=== PATIENT | female | born 1980 | race Caucasian/White ===

== ENCOUNTER 2019-08-18 19:42 | Emergency (ER) | payer MEDICAID ==
[~2019-08-18] VITALS: Ht 165.1 cm; Wt 72.1 kg
[2019-08-18 19:53] VITALS: Ht 165.1 cm; Wt 72.1 kg
[2019-08-18 23:25] VITALS: BP 125/78
== END 2019-08-18 23:25 | disposition home or self-care (01) ==
LOC: ED 19:42
DX: R51 Headache (principal)
CPT/HCPCS: J1885